=== PATIENT | female | born 1955 | race African-American/Black ===

== ENCOUNTER 2019-05-23 17:59 | Inpatient (IN) | payer OTHER, MEDICAID ==
[~2019-05-23] VITALS: Ht 162.6 cm; Wt 52.6 kg
[2019-05-23 17:59] VITALS: BP_SYST 132
--- NOTE | 2019-05-23 17:59 | NUR ---
Patient to ER bed 04 to gown for evaluation. Side rails up. Report given to LIZ POWELL
--- NOTE | 2019-05-23 18:00 | NUR ---
PATIENT SENT FROM [facility] FOR EVALUATION OF INFERIOR SCALP WOUND SENT BY DR. CARRASQUILLO FOR FURTHER EVALUATION. PATIENT IS A FULL CODE.
--- NOTE | 2019-05-23 18:10 | NUR ---
Note antjose guadalupe in EDM - 05/23/19 at 1925 by [email or web address] pt arrives from [place] for an infected scalp wound. Pt has tito BKA and tito wrist. Pt denies having DM. Will continue to monitor.
--- NOTE | 2019-05-23 18:10 | NUR ---
pt arrives from [place] for an infected scalp wound. Pt has tito BKA and tito wrist. Pt denies having DM. Will continue to monitor.
[2019-05-23] MEDS ORDERED: HYDR-4274 PO (18:36)
[2019-05-23] MEDS ORDERED: BISA10SU61 RC (18:36)
[2019-05-23] MEDS ORDERED: MOM PO (18:36)
[2019-05-23] MEDS ORDERED: HYDR200T80 PO (18:36)
[2019-05-23] MEDS ORDERED: NA P133E41 RC (18:36)
[2019-05-23] MEDS ORDERED: AMIN30LI2 PO (18:36)
[2019-05-23] MEDS ORDERED: ACET-2165 PO (18:36)
[2019-05-23] MEDS ORDERED: ASCO500T20 PO (18:36)
[2019-05-23] MEDS ORDERED: MULT-1100 PO (18:36)
[2019-05-23] MEDS ORDERED: GABA-531 PO (18:36)
[2019-05-23] MEDS ORDERED: HYDR-500 PO (18:36)
[2019-05-23] MEDS ORDERED: CAT.1 PO (18:36)
[2019-05-23] MEDS ORDERED: PRO40 PO (18:36)
[2019-05-23] MEDS ORDERED: OXYC18CA PO (18:36)
--- NOTE | 2019-05-23 18:36 | NUR ---
Medication reconciliation completed with information provided by [facility] Order Summary Report. Any prior medication reconciliation on file was reviewed and corrected.
--- NOTE | 2019-05-23 18:55 | NUR ---
EKG done. Given to
--- NOTE | 2019-05-23 19:05 | NUR ---
RECIEVED REPORT FROM ANDRE HILL. PT AAOX4, SKIN W/D TO TOUCH TAYLOR W/ BILAT BELOW WRIST AMPUTEE, AND BILAT BELOW KNEE AMPUTEE, PT HAS BILAT LEG PROSTHESIS, AT PRESENT HAS ONLY RIGHT PROSTHESIS IN USE, PT STATES SHE LEFT LEFT ONE AT THE [facility]. NEW IV STARTED TO LEFT UPPER ARM, 22 GAUGE. LABS DRAWN, INCLUDING BLOOD CULT. PT TOLERATED WELL, RE-DIRECTABLE. PT W/ IRRITABLE DEMEANOR.
--- NOTE | 2019-05-23 19:18 | NUR ---
# 22 gauge angiocath placed to LUE. Use of asceptic technique. Opsite placed over site. Blood return noted. Blood for lab drawn from site. Flushed with 10 cc of normal saline. No evidence of infiltration noted. Patient tolerated well.
--- NOTE | 2019-05-23 19:27 | NUR ---
Care endorsed to Alicia HILL. Pt left in stable condition.
[2019-05-23 19:37] LABS: BILIRUBIN,URINE NEGATIVE (NEGATIVE); BLOOD, URINE NEGATIVE (NEGATIVE); CLARITY/URINE CLEAR (CLEAR); COLOR,URINE YELLOW (YELLOW); GLUCOSE,URINE NEGATIVE (NEGATIVE); KETONES,URINE NEGATIVE (NEGATIVE); LEUKOCYTE ESTERASE ,URINE TRACE (NEGATIVE); NITRITE, URINE NEGATIVE (NEGATIVE); PROTEIN URINE NEGATIVE (NEGATIVE)
[2019-05-23 19:45] LABS: BASOPHILS # (AUTO) 0.1 K/uL (0.0-0.2); EOSINOPHILS # (AUTO) 0.1 K/uL (0.0-0.4); EOSINOPHILS % (AUTO) 1.8 % (0.0-4.0); HEMOGLOBIN 13.6 g/dL (12.0-16.0); LYMPHOCYTES # (AUTO) 2.9 K/uL (1.0-5.5); LYMPHOCYTES % (AUTO) 38.3 % (20.5-51.5); MEAN CORPUSCULAR HEMOGLOBIN 34 pg (27-31); MEAN CORPUSCULAR HGB CONC 33 % (32-36); MEAN CORPUSCULAR VOLUME 101 fL (79.0-98.0); MONOCYTES # (AUTO) 1.1 K/uL (0.0-1.0); MONOCYTES % (AUTO) 15.2 % (1.7-9.3); NEUTROPHILS # (AUTO) 3.3 K/uL (1.8-7.7); NEUTROPHILS % (AUTO) 43.7 % (40.0-70.0); PLATELET COUNT (AUTO) 151 K/uL (130-430); RED BLOOD CELL COUNT(AUTO) 4.05 MIL/uL (4.2-6.2); RED CELL DISTRIBUTION WIDTH 12.8 % (9.0-15.0); WHITE BLOOD COUNT (AUTO) 7.4 K/uL (4.8-10.8)
[2019-05-23 20:05] LABS: CALCIUM 8.7 mg/dL (8.4-11.0); CREATININE 1.49 mg/dL (0.55-1.30); POTASSIUM 4.9 mmol/L (3.5-5.1)
[2019-05-23 20:10] LABS: TOTAL BILIRUBIN 0.5 mg/dL (0.0-1.0)
[2019-05-23 20:11] LABS: INR 1.1 (0.8-1.2); PROTHROMBIN TIME 11.1 SECS (9.5-12.5)
[2019-05-23 20:38] LABS: BACTERIA,URINE RARE /HPF (None Seen); RBC,URINE NONE SEEN /HPF (0-3)
[2019-05-23 20:39] LABS: MUCUS,URINE None Seen /LPF (None Seen)
--- NOTE | 2019-05-23 21:00 | NUR ---
# 22 gauge angiocath placed to right upper arm. Use of asceptic technique. Opsite placed over site. Blood return noted. Flushed with 10 cc of normal saline. No evidence of infiltration noted. Patient tolerated well. Pt resting quietly w/ NAD. Addendum: 05/24/19 at 0349 by [email or web address] ENTRY ERROR
[2019-05-23] MEDS ORDERED: oxyCODONE HCL 10 MG TAB.ER.12H PO ONE (21:45)
[2019-05-23] MEDS ORDERED: MUPIROCIN 2% TOPICAL OINTMENT 22 GM TP ONE (21:45)
[2019-05-23] MEDS ORDERED: ONDANSETRON HCL 4 MG/2 ML VIAL IVP PRN (22:45)
[2019-05-23] MEDS ORDERED: MORPHINE 2 MG/ML INJ. SYRINGE IVP PRN (22:45)
--- NOTE | 2019-05-23 23:30 | NUR ---
PT W/ C/O FEELING COLD, WARM BLANKET GIVEN. REPOSITIONED AND MADE COMFORTABLE. PT CALM AND QUIET. NAD NOTED.
--- NOTE | 2019-05-24 00:40 | NUR ---
Patient will be admitted to care of LIZ Barnard. Admitted to MST unit. Will go to room 121C. Belongings list completed. Summary report printed. Report will be given at bedside. Addendum: 05/24/19 at 0350 by [email or web address] ENTRY ERROR
--- NOTE | 2019-05-24 00:52 | NUR ---
ADMISSION NOTE Received patient from ER via [facility]. Patient admitted with diagnosis of SCALP WOUNDS under Dr. CARRASQUILLO. Patient oriented to hospital routine, call light, toileting and safety.
--- NOTE | 2019-05-24 01:08 | NUR ---
CONSULTATION PAGED/CALLED Reason for Consultation: SCALP WOUNDS Person Who was Notified: HU Consulting Physician: CY URIOSTEGUI Ordering Physician: DR. CARRASQUILLO
--- NOTE | 2019-05-24 01:20 | NUR ---
Initial RN notes Pt received from ED report received from registry nurse Alicia. Pt AAOx3, no s/s distress noted. Head/scalp dressing C/D/I. Pt refused to have it opened and photographed at this time. IV saline lock R. AC 22G clear and patent. 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 Pt c/o feeling cold and refused to have skin checked at this time. Pt has R. knee prosthesis at bedside. Call light instructed on use, pt verbalized understanding. Bed low, locked, side rails up x3. Pt's belongings done. To monitor.
--- NOTE | 2019-05-24 02:35 | NUR ---
Dr. Abel Barker here to examine pt but pt refused to have scalp wound dressing removed at this time.
--- NOTE | 2019-05-24 03:39 | NUR ---
PT W/ C/O FEELING COLD, WARM BLANKET GIVEN. REPOSITIONED AND MADE COMFORTABLE. PT CALM AND QUIET. NAD NOTED. Addendum: 05/24/19 at 0351 by [email or web address] ENTRY ERROR
[2019-05-24 04:25] VITALS: BP_SYST 168
[2019-05-24] MEDS: cloNIDine HCL 0.1 MG TABLET PO PRN ×2 (04:50→10:00)
--- NOTE | 2019-05-24 04:50 | NUR ---
BP med Pt asleep, easily arousable, calm. BP 168/73, Catapres 0.4mg PO given as needed. Call light within reach. Bed low, locked, siderails up. To monitor.
[2019-05-24] MEDS ORDERED: cefTRIAXone 1 GM VIAL ONE (06:03)
[2019-05-24] MEDS: cefTRIAXone 1 GM in D5W 50 ML IV SCH (06:07)
--- NOTE | 2019-05-24 06:20 | NUR ---
Pt refused lab draw per flower shop laborer/designer will try again later.
--- NOTE | 2019-05-24 06:30 | NUR ---
Closing notes Pt awake, drowsy, sitting up in bed. IV antibiotic administered as scheduled VALORIE 22G clear and patent. Scalp wound dressing C/D/I. Call light within reach. Bed low, locked, side rails up, alarm on. To endorse to AM nurse.
[2019-05-24 08:08] VITALS: BP_SYST 178
--- NOTE | 2019-05-24 09:30 | NUR ---
patient refused lab draw.
--- NOTE | 2019-05-24 09:59 | NUR ---
Nutrition Update Saúl Scale 15 noted. Pt admitted for scalp wounds. Diet: regular BMI: 18.2 kg/m2 RD to follow per nutrition care standards.
--- NOTE | 2019-05-24 10:00 | NUR ---
patient refused assessment of head wound. dressing intact and dry. stated "wants to go back to snf that im staying.the nurse changed and clean my head wound 3x a week". they send me here for medical clearance then now im staying here.informed will notify MD prajapati.
[2019-05-24] MEDS: MORPHINE 2 MG/ML INJ. SYRINGE IVP PRN ×3 (10:05→19:53)
--- NOTE | 2019-05-24 10:30 | NUR ---
currently off unit for CT scan of head.
--- NOTE | 2019-05-24 11:48 | NUR ---
social media strategist and dietitian s/w patient at the bedside.
--- NOTE | 2019-05-24 11:51 | NUR ---
Wound Evaluation: Wound Evaluation attempted but patient refused.
[2019-05-24 12:00] VITALS: BP_SYST 167
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
--- NOTE | 2019-05-24 13:43 | NUR ---
Dietitian Recommendations * Recommend continuing regular diet * Encourage increase PO intakes * Pt was not interested in Ensure Enlive ONS, Ric wound healing supplement, or snacks in-between meals when offered by [address] GONZALE[address] RD Please refer to Nutrition Assessment for details. Addendum: 05/24/19 at [address] Amended: Links added.
--- NOTE | 2019-05-24 16:00 | NUR ---
marisol prajapati patient complaining regular medication she's taking is not given to her. s/w chelsie answering services. awaited to callback.
[2019-05-24] MEDS ORDERED: BISACODYL 10 MG RC PRN (16:45)
[2019-05-24] MEDS ORDERED: MILK OF MAGNESIA 30 ML UDC PO PRN (16:45)
[2019-05-24] MEDS ORDERED: NON-FORMULARY MEDICATION (Hydrocodone/Acetaminophen (Norco 10-325 Tablet) 1 EACH) PO PRN (16:45)
[2019-05-24] MEDS ORDERED: SODIUM PHOSPHATE,MONO-DIBASIC 133 ML ENEMA RC SCH (16:45)
[2019-05-24 16:53] VITALS: BP_SYST 131
[2019-05-24 17:15] VITALS: BP_SYST 133
--- NOTE | 2019-05-24 19:30 | NUR ---
OPENING NOTES Receive report from AM nurse. Patient awake, oriented x4. No signs of respiratory distress. No signs of discomfort. HOB raised. Dressing in the head dry, clean and intact. Bed in locked and in lowest position. Safety precaution in place. Call light within reach.
[2019-05-24 20:00] VITALS: BP_SYST 123
[2019-05-24] MEDS: GABAPENTIN 300 MG CAPSULE PO SCH (20:26)
--- NOTE | 2019-05-24 20:40 | NUR ---
SPOKE WITH DR. LOPEZ/ SHANAE IV SITE/PAIN MEDS/HOLD CATAPRES Dr. Lopez made aware of patient's BP 123/57, RN orders to hold scheduled Catapres. also made aware of patients IV infiltrated. Attempted twice, then patient refused to re insert IV. ordered PICC line for tomorrow. ordered Oxycodone 10mg PO Q4 PRN. Will carry out orders. Addendum: 05/24/19 at 2220 by Tasha Garcia RN SPOKE WITH DR. LOPEZ/ SHANAE IV SITE/PAIN MEDS/HOLD CATAPRES Dr. Lopez made aware of patient's BP 123/57, RN was ordered to hold scheduled Catapres. also made aware of patients IV infiltrated. Attempted twice, then patient refused to re insert IV. ordered PICC line for tomorrow. ordered Oxycodone 10mg PO Q4 PRN. Will carry out orders.
[2019-05-24] MEDS: cloNIDine HCL 0.1 MG TABLET PO SCH (20:49)
[2019-05-24] MEDS ORDERED: NON-FORMULARY MEDICATION (Amino Acids/Protein Hydrolys (Pro-Stat Liquid) 30 ML) PO SCH (21:00)
[2019-05-24] MEDS ORDERED: OXYCODONE MYRISTATE 18 MG PO SCH (21:00)
[2019-05-24] MEDS ORDERED: BISACODYL 10 MG/SUPPOSITORY RC PRN (21:30)
[2019-05-24] MEDS: OXYCODONE/ACETAMINOPHEN *10*mg/325 mg TABLET PO PRN (22:10)
--- NOTE | 2019-05-24 22:10 | NUR ---
PAIN MEDS Patient verbalized head pain with the scale of 9/10. Oxycodone 10mg PRN given. No signs of respiratory distress. Will reassess and continue to monitor.
--- NOTE | 2019-05-25 | NUR ---
RN ROUNDS Patient is asleep, no signs of respiratory distress. No signs of discomfort. Breathing even and unlabored. HOB raised. Safety precautions in place. Will continue to monitor.
--- NOTE | 2019-05-25 02:04 | NUR ---
RN ROUNDS Patient is asleep. No SOB. No signs of discomfort. Breathing even and unlabored. HOB raised. Safety precautions in place. Will continue to monitor.
[2019-05-25 02:06] VITALS: BP_SYST 125
[2019-05-25] MEDS: OXYCODONE/ACETAMINOPHEN *10*mg/325 mg TABLET PO PRN ×2 (02:23→06:16)
--- NOTE | 2019-05-25 04:15 | NUR ---
RN ROUNDS Patient is asleep. No SOB. No signs of discomfort. Breathing even and unlabored. HOB raised. Safety precautions in place. Will continue to monitor.
[2019-05-25] MEDS: cefTRIAXone 1 GM in D5W 50 ML IV SCH (05:00)
[2019-05-25] MEDS: PANTOPRAZOLE SODIUM 40 MG TAB PO SCH (06:16)
--- NOTE | 2019-05-25 06:29 | NUR ---
CLOSING NOTE/PAIN/REFUSED PICC LINE Patient is awake, oriented 4x. Patient verbalized head pain with the pain scale of 8/10. PRN medication given. Patient stated she is refusing PICC Line. Will inform MD. No signs of respiratory distress. Dressing in the head dry and intact. Bed lock and lowest position. All needs met throughout the shift. Will endorse to oncoming nurse for continuity of care.
--- NOTE | 2019-05-25 07:50 | NUR ---
OPENING NOTE PATIENT IS AWAKE, ALERT AND ORIENTED. NO C/O PAIN AT THIS TIME. NO ACUTE DISTRESS. NO SOB. RESPIRATION EVEN AND UNLABORED. SKIN WARM AND DRY TO TOUCH. NO IV SITE. DRESSING NOTED ON PATIENT'S SCALP C/D/I. PATIENT CONT TO REFUSE PICC LINE. BED IN LOW AND LOCKED POSITION. SIDERAIL UPX3. BED ALARM ON. ROOM NEAR NURSES STATION. CALL LIGHT IN REACH. CONT TO MONITOR.
[2019-05-25 08:00] VITALS: BP_SYST 99
[2019-05-25] MEDS: ASCORBIC ACID 500 MG TABLET PO SCH (08:52)
[2019-05-25] MEDS: MULTIVITS,CA,MINERALS/IRON/FA 1 TABLET PO SCH (08:53)
[2019-05-25] MEDS: GABAPENTIN 300 MG CAPSULE PO SCH ×3 (08:53→20:33)
[2019-05-25] MEDS: ENOXAPARIN SODIUM 40 MG/0.4 ML SYRINGE SUBCUT SCH ×2 (08:54→09:00)
[2019-05-25] MEDS: cloNIDine HCL 0.1 MG TABLET PO SCH ×2 (09:00→20:33)
[2019-05-25] MEDS ORDERED: HYDROXYCHLOROQUINE SULFATE 200 MG TABLET PO SCH (09:00)
--- NOTE | 2019-05-25 09:00 | NUR ---
MEDS PATIENT AWAKE SITTING UP. ADMINISTERED MEDS; TEACHING DONE. PATIENT REFUSED LOVENOX; RISKS EXPLAINED AND PATIENT CONT TO REFUSE. ALL NEEDS MET. CONT TO MONITOR
[2019-05-25] MEDS: HYDROXYCHLOROQUINE SULFATE 200 MG TABLET PO SCH (10:33)
[2019-05-25] MEDS: ACETAMINOPHEN 325 MG TABLET PO PRN ×2 (10:49→16:50)
[2019-05-25 11:15] VITALS: BP_SYST 98
--- NOTE | 2019-05-25 11:30 | NUR ---
NOTE PATIENT WATCHING TV. PATIENT CONT TO REFUSE DRESSING CHANGE TO SCALP; RISKS EXPLAINED AND PATIENT CONT TO REFUSE.
--- NOTE | 2019-05-25 13:30 | NUR ---
NOTE PATIENT CONTINUE TO REFUSE PICC LINE, IV INSERTION AND REFUSED FOR DRESSING CHANGE TO WOUND ON SCALP. DRESSING ON SCALP IS C/D/I. PATIENT ALSO CONTINUES TO STATE THAT SHE WANTS TO GO BACK TO HER ASSISTED THAT SHE CAME FROM.
--- NOTE | 2019-05-25 15:00 | NUR ---
SEEN AND EXAMINED BY AT BEDSIDE. INFORMED MD PATIENT IS REFUSING IV LINE AND WOUND CARE TO SCALP. MD IS AWARE. CONT TO MONITOR
[2019-05-25 15:10] VITALS: BP_SYST 107
--- NOTE | 2019-05-25 16:50 | NUR ---
NOTE PATIENT C/O 3/10 PAIN TO SCALP. TYLENOL ADMINSTERED ORDERED, SILVERIO WELL. BP 108/50 HR 52. PATIENT CONTINUE TO REFUSE WOUND CARE TO SCALP. DRESSING IS C/D/I.
--- NOTE | 2019-05-25 18:36 | NUR ---
CLOSING NOTE SEEN AND EXAMINED BY AT BEDSIDE. MD MADE AWARE PATIENT CONTINUE TO REFUSE IV AND WOUND CARE. RECEIVED NEW ORDER FOR NORCO FOR MODERATE PAIN ORDERED. PATIENT STABLE. SITTING UP WATCHING TV. PATIENT DIDNT LIKE DINNER ASKED FOR SUBSTITUTE; EATING WELL. NO ACUTE DISTRESS. SKIN WARM AND DRY TO TOUCH. KEPT CLEAN AND DRY. ALL NEEDS MET. CALL LIGHT IN REACH. CONT TO MONITOR.
--- NOTE | 2019-05-25 19:12 | NUR ---
OPENING NOTES Receive report from AM nurse. Patient is sitting in bed. No acute respiratory distress. Denies pain and discomfort. Dressing in the head, dry, clean and intact. Bed in locked and lowest position. Call light with in reach.
[2019-05-25 20:00] VITALS: BP_SYST 125
[2019-05-25] MEDS: HYDROcodone/ACETAMIN 10-325 MG TAB PO PRN (21:19)
--- NOTE | 2019-05-25 21:19 | NUR ---
PAIN/ REFUSED RE; IV LINE Patient verbalized 6/10 head pain. PRN medication given. Re offer patient to re insert IV, educated patient on purpose and benefits, patient still refused. Will continue to encourage throughout the shift. Call light within reach. Safety precautions in place. Will continue to reassess and monitor.
[2019-05-25 22:57] VITALS: BP_SYST 118
--- NOTE | 2019-05-25 23:12 | NUR ---
RN ROUNDS Patient asleep, no signs of respiratory distress or discomfort noted. Safety precautions in place. Will continue to monitor.
--- NOTE | 2019-05-26 01:11 | NUR ---
RN ROUNDS Patient awake watching TV. Patient denies pain and discomfort at this time. No respiratory distress noted. Safety precaution in place. Call light within reach. Will continue to monitor.
[2019-05-26] MEDS: HYDROcodone/ACETAMIN 10-325 MG TAB PO PRN ×4 (02:07→15:34)
--- NOTE | 2019-05-26 02:07 | NUR ---
PAIN/VOID Patient verbalized 6/10 head pain. PRN medication given. No acute respiratory distress noted. Patient voided using bedpan assisted by RN.
--- NOTE | 2019-05-26 04:01 | NUR ---
RN ROUNDS Patient is asleep, no signs of respiratory distress and discomfort noted. Safety precaution on place. Will continue to monitor.
--- NOTE | 2019-05-26 05:31 | NUR ---
RN ROUNDS Patient is asleep, no signs of respiratory distress and discomfort noted. HOB raised. Safety precautions on place. Will continue to monitor.
[2019-05-26] MEDS: cefTRIAXone 1 GM in D5W 50 ML IV SCH (06:00)
[2019-05-26] MEDS: PANTOPRAZOLE SODIUM 40 MG TAB PO SCH (06:06)
--- NOTE | 2019-05-26 06:35 | NUR ---
CLOSING NOTES Patient is sitting in bed awake, alert, oriented x4. No signs of respiratory distress, denies pain and discomfort at this time. Dressing on the head dry and intact, no drainage, no active bleeding noted. Bed locked and lowest position. Safety precautions in place. Call light within reach. All needs met throughout the shift. Will continue to monitor until endorsed to oncoming nurse for continuity of care.
--- NOTE | 2019-05-26 07:45 | NUR ---
OPENING NOTE PATIENT AWAKE IN BED. NO C/O PAIN AT THIS TIME. ROOM AIR. NO ACUTE DISTRESS. NO SOB. RESPIRATION EVEN AND UNLABORED. SKIN WARM AND DRY TO TOUCH. NO IV SITE. DRESSING TO SCALP C/D/I. DISCUSSED PLAN OF CARE. PATIENT CONTINUES TO REFUSE IV INSERTION AND WOUND CARE; RISKS EXPLAINED TO PATIENT. PATIENT CONTINUES TO REFUSE. CALL LIGHT IN REACH. CONT TO MONITOR.
[2019-05-26 08:00] VITALS: BP_SYST 147
[2019-05-26] MEDS: ENOXAPARIN SODIUM 40 MG/0.4 ML SYRINGE SUBCUT SCH (09:00)
[2019-05-26] MEDS: MULTIVITS,CA,MINERALS/IRON/FA 1 TABLET PO SCH (09:20)
[2019-05-26] MEDS: HYDROXYCHLOROQUINE SULFATE 200 MG TABLET PO SCH (09:20)
[2019-05-26] MEDS: ASCORBIC ACID 500 MG TABLET PO SCH (09:21)
[2019-05-26] MEDS: GABAPENTIN 300 MG CAPSULE PO SCH ×2 (09:21→15:31)
[2019-05-26] MEDS: cloNIDine HCL 0.1 MG TABLET PO SCH ×2 (09:21→19:31)
--- NOTE | 2019-05-26 09:26 | NUR ---
MEDS DUE MEDICATIONS ADMINISTERED ORDERED, SILVERIO WELL. PATIENT REFUSED LOVENOX; STATED SHE "DONT WANT IT". RISKS EXPLAINED AND PATIENT CONT TO REFUSE
--- NOTE | 2019-05-26 09:27 | NUR ---
Discharge Planning: ABATTOIR SUPERVISOR placed call to [facility] ([phone] f.[phone]) and spoke to Olivia. Olivia states that pt will be accepted back today; pt will go to room 40C; Olivia asks for pt to be transported after 4:00pm due to a discharge that needs to take place prior to pt coming back to facility. Olivia asked for pt's information to be faxed; ABATTOIR SUPERVISOR has faxed referral to Olivia. [facility] will arrange for tack picker at 4:30pm. Packet will be taken to nurses station once transportation arranged. Addendum: 05/26/19 at 1007 by Leticia Robledo LCSW BLS ambulance has been set up with [facility] ([phone]) tack picker at 4:30pm; updated packet has been placed at nurses station. Addendum: 05/26/19 at 1549 by Leticia Robledo LCSW ABATTOIR SUPERVISOR spoke with Raymundo at [facility] and placed the ambulance on will call. ABATTOIR SUPERVISOR spoke with doctor earlier who stated that he would enter a DC order; no order has been entered. ABATTOIR SUPERVISOR updated pt's nurse who will call doctor later for DC order if doctor does not come to the hospital during this shift.
--- NOTE | 2019-05-26 10:30 | NUR ---
NOTE EDUCATED PATIENT ON INFECTION. PATIENT CONTINUE TO REFUSE IV INSERTION AND WOUND CARE TO SCALP. AWARE.
[2019-05-26 11:10] VITALS: BP_SYST 126
--- NOTE | 2019-05-26 11:15 | NUR ---
pain PATIENT C/O 6/10 PAIN TO WOUND ON SCALP. PATIENT REFUSED TO REMOVE DRESSING AND REFUSED WOUND CARE; RISKS EXPLAINED AND PATIENT CONTINUE TO REFUSE. MD AWARE. NORCO ADMINISTERED ORDERED FOR PAIN, SILVERIO WELL. VITAL SIGN STABLE. CONT TO MONITOR
[2019-05-26 11:35] VITALS: BP_SYST 112
--- NOTE | 2019-05-26 12:00 | NUR ---
FAMILY ATTEMPTED TO CALL JAMEL SUAREZ, DAUGHTER, AND IT WENT STRAIGHT TO BUT UNABLE TO LEAVE [facility] DUE TO NOT SET UP. ATTEMPTED TO CALL СВЕТЛАНА ANDERSON, FRIEND, AND WAS UNABLE TO REACH СВЕТЛАНА WELL.
--- NOTE | 2019-05-26 13:43 | NUR ---
NOTE PATIENT DIDNT LIKE LUNCH AND REQUESTED AND PB&J SANDWICH AND WELL. PATIENT CONTINUE TO REFUSE IV INSERTION AND WOUND CARE; RISKS EXPLAINED. CONT TO MONITOR
--- NOTE | 2019-05-26 14:25 | NUR ---
REPORT CALLED [facility] [phone] AND SPOKE TO MATT HILL. REPORT GIVEN AND INFORMED MATT PATIENT REFUSED IV INSERTION AND WOUND CARE WHILE AT THE HOSPITAL. MATT IS AWARE OF PATIENT'S NONCOMPLIANCE.
--- NOTE | 2019-05-26 14:41 | NUR ---
FAMILY STILL UNABLE TO REACH JAMEL SUAREZ AND СВЕТЛАНА ANDERSON.
[2019-05-26 15:01] VITALS: BP_SYST 115
--- NOTE | 2019-05-26 15:30 | NUR ---
WOUND CARE WOUND CARE PROVIDED TO SCALP. PICTURES TAKEN. PATIENT TOLERATED WELL. CONT TO MONITOR Addendum: 05/26/19 at 1744 by Veronika Moy RN MEDICATED PATIENT FOR WOUND CARE. VITAL SIGNS STABLE.
--- NOTE | 2019-05-26 16:28 | NUR ---
LIA SPOKE TO MEGAN. PER MEGAN SANTIAGO WANTS TO SEE PATIENT BEFORE DISCHARGE. AMBULANCE SCOOP FILLER FOR 1629 CHANGED TO WILL CALL.
--- NOTE | 2019-05-26 17:44 | NUR ---
FELA CONV INFORMED RN BRANCH ACCOUNT EXECUTIVE WANTS TO SEE PATIENT BEFORE DISCHARGE AND TRANSPORTATION IS BE ON WILL CALL. AWAITING FOR
--- NOTE | 2019-05-26 17:55 | NUR ---
[facility] CALLED . SCHEDULED HOME COMFORT ADVISOR TIME FOR 1929
--- NOTE | 2019-05-26 18:32 | NUR ---
CLOSING NOTE PATIENT SITTING UP IN BED STABLE. NO ACUTE DISTRESS. NO SOB. SKIN WARM AND DRY TO TOUCH. DRESSING TO SCALP C/D/I. AWAITING TO BE PICKED UP BY [facility] AT 1930. ALL NEEDS MET. CALL LIGHT IN REACH. WILL ENDORSE TO ONCOMING SHIFT.
--- NOTE | 2019-05-26 19:46 | NUR ---
DISCHARGE Report given to Abran Espinosa, EMT of [facility] ambulance. Patient in bed, no s/s of acute distress noted. Breathing even and unlabored. No IV site. ID band removed. Dressing on head intact, clean and dry. Patient denies pain, states that she is comfortable. All needs met. Patient escorted out the facility via gurney.
== END 2019-05-26 19:47 | DRG 605 ==
LOC: SED 17:59 → STU 22:31
PROVIDERS: ADMIT Internal Medicine; ATTEND Internal Medicine
DX: S01.00XA Unspecified open wound of scalp, initial encounter (principal); N17.9 Acute kidney failure, unspecified; N39.0 Urinary tract infection, site not specified; E44.0 Moderate protein-calorie malnutrition; B18.2 Chronic viral hepatitis C; I10 Essential (primary) hypertension; E78.5 Hyperlipidemia, unspecified; R13.10 Dysphagia, unspecified; D64.9 Anemia, unspecified; L93.0 Discoid lupus erythematosus; I73.9 Peripheral vascular disease, unspecified; G62.9 Polyneuropathy, unspecified; K21.9 Gastro-esophageal reflux disease without esophagitis; F41.9 Anxiety disorder, unspecified; G47.00 Insomnia, unspecified; X58.XXXA Exposure to other specified factors, initial encounter; Z89.512 Acquired absence of left leg below knee; Z89.511 Acquired absence of right leg below knee; Z79.899 Other long term (current) drug therapy; B19.20 Unspecified viral hepatitis C without hepatic coma
CPT/HCPCS: 36415; 70450-TC; 71045; 80053; 81000-TC; 83605; 84484; 85025; 85610-TC; 85730-TC; 87040-TC; 87081; 87086; 93005; 99285; G0378; J0696; J1650; J2270; J2405; J7060